=== PATIENT | male | born 1980 | race Two or more races ===

== ENCOUNTER 2021-06-24 21:54 | Emergency (ER) | payer OTHER ==
[~2021-06-24] VITALS: Ht 182.9 cm; Wt 104.3 kg
[2021-06-25 02:47] VITALS: BP 121/88
[2021-06-25] MEDS ORDERED: TETANUS-DIPTH-ACEL PERTUSSIS 0.5ML SYR Tdap IM ONE (03:15)
== END 2021-06-25 03:35 | disposition home or self-care (01) ==
LOC: ER 21:55
DX: S61.250A Open bite of right index finger without damage to nail, initial encounter (principal); W54.0XXA Bitten by dog, initial encounter; Y93.89 Activity, other specified; Y92.89 Other specified places as the place of occurrence of the external cause; Y99.8 Other external cause status
CPT/HCPCS: 73140; 90471; 90715